=== PATIENT | female | born 1985 | race Caucasian/White ===

== ENCOUNTER 2018-03-24 21:30 | Inpatient (IN) ==
[2018-03-24] MEDS ORDERED: BUTORPHANOL 2 MG/ML VIAL IV PRN (21:39)
[2018-03-24 21:55] LABS: Basophils % 0.4 % (0.0-0.8); Eosinophils # 0.1 10*3/uL (0.0-0.87); Hemoglobin 11.1 GM/DL (12.0-16.0); Immature Granulocytes % 0.5 %; Immature Granulocytes Absolute 0.05 #; Lymphocytes # 2.3 10*3/uL (1.4-4.0); Lymphocytes % 25.3 % (21.3-54.2); Mean Corpuscular HGB Conc 32.6 GM/DL (32-36); Mean Corpuscular Hemoglobin 28 PG (27-34); Mean Corpuscular Volume 86.3 FL (87-102); Mean Platelet Volume 10.3 FL (9.6-12.0); Monocytes # 0.7 10*3/uL (0.11-0.8); Monocytes % 7.6 % (1.7-12.7); Neutrophils # 5.9 10*3/uL (1.4-7.4); Neutrophils % 65.2 % (38.7-73.9); Platelet Count 227 T/CUMM (130-400); Red Blood Count 3.94 MC/CUMM (3.8-5.5); Red Cell Distribution Width 15.9 % (9.3-17.3); White Blood Count 9.1 T/CUMM (4-12)
[2018-03-24 22:15] LABS: Alanine Aminotransferase 22 U/L (13-56); Albumin 2.5 G/DL (3.4-5.0); Alkaline Phosphatase 157 U/L (45-117); Aspartate Amino Transferase 22 U/L (0-37); Bilirubin,Total < 0.39 MG/DL (0.2-1.0); Blood Urea Nitrogen 11 MG/DL (7-18); Calcium 9.3 MG/DL (8.5-10.1); Glucose 76 MG/DL (74-106); Osmolality,Calculated 274.5 MOS/KG (273-304); Potassium 3.8 MMOL/L (3.5-5.1); Sodium 139 MMOL/L (136-145)
[2018-03-25] MEDS: LACTATED RINGERS 1,000 ML IV SCH ×2 (00:22→12:39)
[2018-03-25] MEDS: ONDANSETRON 4 MG/2 ML VIAL IV PRN ×2 (12:44→22:20)
[2018-03-25] MEDS: ACETAMINOPHEN 500 MG TABLET PO PRN ×2 (16:19→20:45)
[2018-03-25] MEDS: MEPERIDINE 50 MG/1 ML VIAL IV PRN (22:23)
[2018-03-25] MEDS ORDERED: LACTATED RINGERS 1,000 ML IV SCH (23:45)
[2018-03-25] MEDS ORDERED: CITRIC ACID/SODIUM CITRATE 30 ML UDCUP PO ONE (23:57)
[2018-03-25] MEDS ORDERED: LACTATED RINGERS 1,000 ML IV ONE (23:57)
[2018-03-25] MEDS ORDERED: hydrOXYzine HCL 25 MG/1 ML VIAL IM PRN (23:57)
[2018-03-25] MEDS ORDERED: ONDANSETRON 4 MG/2 ML VIAL IV ONE (23:57)
[2018-03-25] MEDS ORDERED: diphenhydrAMINE 50 MG/1 ML VIAL IV PRN ×2 (23:57)
[2018-03-25] MEDS ORDERED: PROMETHAZINE 25 MG/1 ML VIAL IM ONE (23:57)
[2018-03-25] MEDS ORDERED: ePHEDrine 50 MG/ML AMP IV PRN (23:57)
[2018-03-25] MEDS ORDERED: FAMOTIDINE 20 MG/2 ML VIAL IV ONE (23:57)
[2018-03-26] MEDS: fentaNYL 2 MCG/ROPIV 0.2% EPID 150 ML EPIDURAL SCH ×2 (02:15→10:00)
[2018-03-26] MEDS: LACTATED RINGERS 1,000 ML IV SCH ×2 (02:50)
[2018-03-26] MEDS ORDERED: OXYTOCIN/LR 20 UNIT/1,000 ML BAG IV SCH (06:00)
[2018-03-26] MEDS ORDERED: OXYTOCIN/LR 20 UNIT/1,000 ML BAG IV ONE ×2 (06:01→10:56)
[2018-03-26] MEDS ORDERED: LIDOCAINE 1% 50 ML VIAL ONE (10:35)
[2018-03-26] MEDS ORDERED: RHO(D) IMMUNE GLOBULIN 300 MCG SYRINGE IM ONE (10:56)
[2018-03-26] MEDS ORDERED: DIPH/TET/ACEL PERT BOOSTER VACCINE 0.5 ML VIAL IM ONE (10:56)
[2018-03-26] MEDS ORDERED: BISACODYL 10 MG SUPP RECTAL PRN (10:56)
[2018-03-26] MEDS ORDERED: BENZOCAINE 20%/MENTHOL 0.5% SPRAY 56 GM CAN TOP PRN (10:56)
[2018-03-26] MEDS ORDERED: WITCH HAZEL PADS 100/JAR TOP PRN (10:56)
[2018-03-26] MEDS ORDERED: MEASLES/MUMPS/RUBELLA VACCINE 0.5 ML VIAL SUBCUT ONE (10:56)
[2018-03-26] MEDS ORDERED: ONDANSETRON 4 MG/2 ML VIAL IV PRN (10:56)
[2018-03-26] MEDS ORDERED: LANOLIN 50% CREAM 0.3 OZ TUBE TOP PRN (10:56)
[2018-03-26] MEDS ORDERED: IBUPROFEN 800 MG TABLET PO PRN (10:56)
[2018-03-26] MEDS ORDERED: HYDROCORTISONE 2.5% RECTAL CREAM 30 GM TUBE TOP PRN (10:56)
[2018-03-26] MEDS ORDERED: ACETAMINOPHEN 325 MG TABLET PO PRN (10:56)
[2018-03-26] MEDS ORDERED: oxyCODONE/ACETAMINOPHEN 5-325 MG TABLET PO PRN ×2 (10:56)
[2018-03-26 11:06] LABS: Cord Arterial Blood HCO3 16.5 MMOL/L
[2018-03-26 11:08] LABS: Cord Venous Blood HCO3 18.7 MMOL/L; Cord Venous Blood PCO2 47.6 MMHG; Cord Venous Blood PO2 19.7
[2018-03-26] MEDS: MEPERIDINE 50 MG/1 ML VIAL IV PRN (11:08)
[2018-03-26] MEDS: DOCUSATE SODIUM 100 MG CAPSULE PO SCH (21:36)
[2018-03-27 05:22] LABS: Basophils % 0.3 % (0.0-0.8); Eosinophils # 0.1 10*3/uL (0.0-0.87); Eosinophils % 0.8 % (0.00-10.9); Immature Granulocytes % 0.5 %; Immature Granulocytes Absolute 0.07 #; Lymphocytes # 2.7 10*3/uL (1.4-4.0); Lymphocytes % 20.2 % (21.3-54.2); Mean Corpuscular HGB Conc 33.1 GM/DL (32-36); Mean Corpuscular Hemoglobin 28 PG (27-34); Mean Corpuscular Volume 84.7 FL (87-102); Mean Platelet Volume 10.7 FL (9.6-12.0); Monocytes # 0.8 10*3/uL (0.11-0.8); Monocytes % 6.2 % (1.7-12.7); Neutrophils # 9.6 10*3/uL (1.4-7.4); Red Cell Distribution Width 16.2 % (9.3-17.3)
[2018-03-27 05:37] LABS: Hemoglobin 8.6 GM/DL (12.0-16.0); Platelet Count 176 T/CUMM (130-400); Red Blood Count 3.07 MC/CUMM (3.8-5.5); White Blood Count 13.3 T/CUMM (4-12)
[2018-03-27] MEDS: DOCUSATE SODIUM 100 MG CAPSULE PO SCH ×2 (09:01→21:29)
[2018-03-27] MEDS: MULTIVITAMIN (PRENATAL) TABLET PO SCH (09:01)
[2018-03-28 07:18] VITALS: BP 133/79
[2018-03-28] MEDS: MULTIVITAMIN (PRENATAL) TABLET PO SCH (08:43)
[2018-03-28] MEDS: DOCUSATE SODIUM 100 MG CAPSULE PO SCH (08:43)
== END 2018-03-28 12:10 | disposition home or self-care (01) | DRG 775 ==
LOC: N.LDOUT 21:30 → N.LD 21:32 → N.OB 03-26 17:52
PROVIDERS: ADMIT Specialist; ATTEND Specialist

== ENCOUNTER 2019-10-03 11:55 | Inpatient (IN) ==
[2019-10-03] MEDS ORDERED: FAMOTIDINE 20 MG/2 ML VIAL IV ONE (12:14)
[2019-10-03] MEDS ORDERED: CITRIC ACID/SODIUM CITRATE 30 ML UDCUP PO ONE (12:14)
[2019-10-03] MEDS ORDERED: ceFAZolin 2,000 MG in PREMIX 1 EACH IV ONE (12:14)
[2019-10-03] MEDS ORDERED: OXYTOCIN/LR 20 UNIT/1,000 ML BAG IV ONE ×2 (12:19→14:01)
[2019-10-03] MEDS ORDERED: LACTATED RINGERS 1,000 ML IV SCH ×3 (12:30→19:30)
[2019-10-03 12:44] LABS: Basophils % 0.3 % (0.0-0.8); Eosinophils # 0.1 10*3/uL (0.0-0.87); Eosinophils % 0.6 % (0.00-10.9); Hematocrit 38.8 VOL% (35.7-47.0); Hemoglobin 12.7 GM/DL (12.0-16.0); Immature Granulocytes % 0.4 %; Immature Granulocytes Absolute 0.04 #; Lymphocytes % 32.2 % (21.3-54.2); Mean Corpuscular HGB Conc 32.7 GM/DL (32-36); Mean Corpuscular Volume 88.2 FL (87-102); Mean Platelet Volume 11.3 FL (9.6-12.0); Monocytes % 6.7 % (1.7-12.7); Neutrophils % 59.8 % (38.7-73.9); Platelet Count 221 T/CUMM (130-400); Red Cell Distribution Width 14.4 % (9.3-17.3); White Blood Count 9.3 T/CUMM (4-12)
[2019-10-03 12:55] LABS: INR 0.8; PT Patient Result 8.8 SECS (9.6-12.2); Partial Thromboplastin Time 24.1 SECS (20.8-36.0)
[2019-10-03 13:05] LABS: Alanine Aminotransferase 17 U/L (13-56); Albumin 2.4 G/DL (3.4-5.0); Alkaline Phosphatase 157 U/L (45-117); Aspartate Amino Transferase 21 U/L (0-37); Bilirubin,Total < 0.39 MG/DL (0.2-1.0); Blood Urea Nitrogen 17 MG/DL (7-18); Calcium 8.8 MG/DL (8.5-10.1); Estimated Glom Filtration Rate 128 ML/MIN; Glucose 65 MG/DL (74-106); Osmolality,Calculated 276.5 MOS/KG (273-304); Total Protein 6.6 G/DL (6.4-8.3)
[2019-10-03] MEDS ORDERED: MAGNESIUM SULF RIDER 4 GM in PREMIX 1 EACH IV ONE (14:00)
[2019-10-03] MEDS ORDERED: ACETAMINOPHEN 325 MG TABLET PO PRN (14:01)
[2019-10-03] MEDS ORDERED: DIPH/TET/ACEL PERT BOOSTER VACCINE 0.5 ML VIAL IM ONE (14:01)
[2019-10-03] MEDS ORDERED: LANOLIN 50% CREAM 0.3 OZ TUBE TOP PRN (14:01)
[2019-10-03] MEDS ORDERED: RHO(D) IMMUNE GLOBULIN 300 MCG SYRINGE IM ONE (14:01)
[2019-10-03] MEDS ORDERED: BENZOCAINE 20%/MENTHOL 0.5% SPRAY 56 GM CAN TOP PRN (14:01)
[2019-10-03] MEDS ORDERED: WITCH HAZEL PADS 100/JAR TOP PRN (14:01)
[2019-10-03] MEDS ORDERED: ONDANSETRON 4 MG/2 ML VIAL IV PRN ×2 (14:01→15:41)
[2019-10-03] MEDS ORDERED: MEASLES/MUMPS/RUBELLA VACCINE 0.5 ML VIAL SUBCUT ONE (14:01)
[2019-10-03] MEDS ORDERED: oxyCODONE/ACETAMINOPHEN 5-325 MG TABLET PO PRN ×2 (14:01)
[2019-10-03] MEDS ORDERED: HYDROCORTISONE 2.5% RECTAL CREAM 30 GM TUBE TOP PRN (14:01)
[2019-10-03] MEDS ORDERED: BISACODYL 10 MG SUPP RECTAL PRN (14:01)
[2019-10-03] MEDS ORDERED: MAGNESIUM SULF RIDER 100 ML IV ONE (14:06)
[2019-10-03 14:08] LABS: Apearance,Urine CLEAR (Clear); Bilirubin,Urine Negative (Negative); Blood, Urine Negative (Negative); Glucose,Urine (UA) Negative (Negative); Ketones,Urine Negative (Negative); Mucus,Urine Occasional /LPF (Occasional); Nitrite,Urine Negative (Negative); Protein,Urine 100 MG/DL; Urine Color Yellow (Yellow); Urine Urobilinogen < 2.0 EU/DL (0.2-1.0); WBC,Urine <1 /HPF (0-6)
[2019-10-03] MEDS ORDERED: propofoL 200 MG/20 ML VIAL IV ONE (14:31)
[2019-10-03] MEDS ORDERED: LABETALOL 20 MG/4 ML SYRINGE IV ONE (14:31)
[2019-10-03] MEDS ORDERED: LIDOCAINE 2% 5 ML VIAL ONE (14:31)
[2019-10-03] MEDS ORDERED: BUPIVACAINE SPINAL 0.75% 2 ML AMP SPINAL ONE (14:31)
[2019-10-03] MEDS ORDERED: MORPHINE 10 MG/10 ML VIAL ONE (14:32)
[2019-10-03] MEDS ORDERED: fentaNYL 100 MCG/2 ML VIAL ONE (14:33)
[2019-10-03] MEDS ORDERED: ONDANSETRON 4 MG/2 ML VIAL ONE (14:33)
[2019-10-03] MEDS ORDERED: LACTATED RINGERS 1,000 ML IV ONE (14:33)
[2019-10-03] MEDS ORDERED: MIDAZOLAM 2 MG/2 ML VIAL ONE (14:33)
[2019-10-03] MEDS ORDERED: KETAMINE 500 MG/10 ML VIAL ONE (14:33)
[2019-10-03] MEDS: MAGNESIUM SULF DRIP 40 GM/1,000 ML ML IV SCH (14:48)
[2019-10-03] MEDS: LABETALOL 200 MG TABLET PO SCH ×2 (15:21→23:12)
[2019-10-03] MEDS ORDERED: diphenhydrAMINE 50 MG/1 ML VIAL IV PRN (15:41)
[2019-10-03] MEDS ORDERED: hydrOXYzine HCL 25 MG/1 ML VIAL IM PRN (15:41)
[2019-10-03] MEDS ORDERED: HYDROmorphone 2 MG/1 ML VIAL IV PRN (15:41)
[2019-10-03] MEDS ORDERED: SODIUM CHLORIDE 0.9% 1,000 ML IV SCH (16:00)
[2019-10-03] MEDS ORDERED: miSOPROStoL 200 MCG TABLET ONE (16:13)
[2019-10-03] MEDS ORDERED: miSOPROStoL 200 MCG TABLET VAG ONE (16:15)
[2019-10-03] MEDS ORDERED: miSOPROStoL 200 MCG TABLET RECTAL ONE (16:15)
[2019-10-03] MEDS: ceFAZolin 1,000 MG in SYRINGE 1 EACH IV SCH (20:00)
[2019-10-03] MEDS ORDERED: ceFAZolin 1,000 MG VIAL IM SCH (20:00)
[2019-10-03] MEDS: DOCUSATE SODIUM 100 MG CAPSULE PO SCH (21:06)
[2019-10-03] MEDS ORDERED: ZOLPIDEM 5 MG TABLET PO ONE (22:10)
[2019-10-04 02:23] LABS: Basophils % 0.2 % (0.0-0.8); Eosinophils % 0.1 % (0.00-10.9); Hematocrit 27.8 VOL% (35.7-47.0); Immature Granulocytes % 0.4 %; Immature Granulocytes Absolute 0.07 #; Lymphocytes # 2.6 10*3/uL (1.4-4.0); Lymphocytes % 16.1 % (21.3-54.2); Mean Corpuscular HGB Conc 32.4 GM/DL (32-36); Mean Corpuscular Volume 89.7 FL (87-102); Mean Platelet Volume 10.9 FL (9.6-12.0); Monocytes % 3.5 % (1.7-12.7); Neutrophils % 79.7 % (38.7-73.9); Platelet Count 162 T/CUMM (130-400); Red Cell Distribution Width 14.6 % (9.3-17.3); White Blood Count 16.2 T/CUMM (4-12)
[2019-10-04] MEDS: ceFAZolin 1,000 MG in SYRINGE 1 EACH IV SCH (04:05)
[2019-10-04] MEDS: IBUPROFEN 800 MG TABLET PO PRN ×2 (09:18→15:42)
[2019-10-04] MEDS: LABETALOL 200 MG TABLET PO SCH ×3 (09:19→23:42)
[2019-10-04] MEDS: DOCUSATE SODIUM 100 MG CAPSULE PO SCH ×2 (09:19→21:11)
[2019-10-04] MEDS: MULTIVITAMIN (PRENATAL) TABLET PO SCH (09:19)
[2019-10-04] MEDS: SIMETHICONE CHEW 80 MG TABLET PO PRN ×3 (09:19→21:11)
[2019-10-04] MEDS: MAGNESIUM SULF DRIP 40 GM/1,000 ML ML IV SCH (12:15)
[2019-10-04] MEDS: MAGNESIUM HYDROXIDE SUSP 30 ML UDCUP PO PRN (21:11)
[2019-10-05] MEDS: IBUPROFEN 800 MG TABLET PO PRN ×2 (02:16→09:25)
[2019-10-05] MEDS: MULTIVITAMIN (PRENATAL) TABLET PO SCH (09:23)
[2019-10-05] MEDS: MAGNESIUM HYDROXIDE SUSP 30 ML UDCUP PO PRN (09:23)
[2019-10-05] MEDS: DOCUSATE SODIUM 100 MG CAPSULE PO SCH ×2 (09:25→21:34)
[2019-10-05] MEDS: SIMETHICONE CHEW 80 MG TABLET PO PRN (09:26)
[2019-10-05] MEDS: LABETALOL 200 MG TABLET PO SCH ×3 (11:46→21:34)
[2019-10-06] MEDS: LABETALOL 200 MG TABLET PO SCH (07:33)
[2019-10-06] MEDS: DOCUSATE SODIUM 100 MG CAPSULE PO SCH (07:34)
[2019-10-06] MEDS: MULTIVITAMIN (PRENATAL) TABLET PO SCH (07:35)
[2019-10-06 08:40] VITALS: BP 139/84
[2019-10-06] MEDS ORDERED: FERROUS SULFATE 325 MG TABLET PO SCH (09:00)
== END 2019-10-06 12:25 | disposition home or self-care (01) | DRG 788 ==
LOC: N.LDOUT 11:55 → N.LD 11:58 → N.OB 10-04 20:17
PROVIDERS: ADMIT Specialist; ATTEND Specialist
PROC: LDCSECT (ICD-10-PCS; 2019-10-03 12:20)